=== PATIENT | male | born 1995 | race Caucasian/White ===

== ENCOUNTER 2020-02-22 13:45 | Emergency (ER) | payer OTHER ==
[2020-02-22] MEDS ORDERED: ceFAZolin SODIUM 2 GM in SODIUM CHLORIDE 0.9% 100ML 100 ML IVPB ONE (14:03)
[2020-02-22] MEDS ORDERED: ceFAZolin SODIUM 1 GM VIAL ONE (14:09)
[2020-02-22] MEDS ORDERED: SODIUM CHLORIDE 0.9% 100ML 100 ML IVPB ONE (14:09)
[2020-02-22] MEDS ORDERED: MORPHINE SULFATE INJ 10 MG/ML VIAL ONE (14:10)
[2020-02-22] MEDS ORDERED: ONDANSETRON INJ 4 MG/2 ML VIAL ONE (14:10)
[2020-02-22] MEDS ORDERED: TETANUS,DIPHTHERIA,PERTUSSIS 1 EA SYG IM ONE (14:10)
[2020-02-22] MEDS ORDERED: MORPHINE SULFATE INJ 10 MG/ML VIAL IV ONE (14:15)
[2020-02-22] MEDS ORDERED: ONDANSETRON INJ 4 MG/2 ML VIAL IV ONE (14:15)
--- NOTE | 2020-02-22 14:34 | ED.PDOC ---
History of Present Illness - General Chief Complaint: Upper Extremity Injury Stated Complaint: rope caught middle finger of LH Time Seen by Provider: 02/22/20 14:02 Source: patient, RN notes reviewed, Vital Signs reviewed Exam Limitations: no limitations - History of Present Illness Initial Comments: Patient is a 24-year-old white male who is left-hand dominant who presents with complaints of left middle finger injury. Patient was tying off a horse when his hand was caught between the rope and the bar and horse leaned back constricting and crushing that left middle finger. Patient complains of loss of sensation and color to the left middle finger. Patient states that he is got full range of motion of the finger. Patient denies any other symptoms. Patient's tetanus shot is not up-to-date. Occurred: just prior to arrival Severity: moderate Pain Location: upper extremity - Left middle finger. Method of Injury: direct blow Improving Factors: nothing Worsening Factors: nothing Loss of Consciousness: no loss of consciousness Associated Symptoms (Fall): denies symptoms Allergies/Adverse Reactions: Allergies NO KNOWN ALLERGY Allergy (Verified 02/22/20 13:48) Past Medical History (General) - Patient Medical History Hx Asthma: No Hx Gastroesophageal Reflux: No Surgical History: no surgical history - Vaccination History Hx Tetanus, Diphtheria Vaccination: No - Social History Hx Tobacco Use: No Hx Chewing Tobacco Use: Yes Hx Alcohol Use: Yes - Social on the weekends Hx Substance Use: No - Activities of Daily Living Grooming Ability: Independent Eating (Feeding) Ability: Standby Assistance Toileting Ability: Independent - Female History Patient is a Female of Child Bearing Age (10 -59 yrs old): No Family Medical History - Family History Father Family History: Unknown Physical Exam - Physical Exam General Appearance: Alert, Anxious, Well Developed, Well Groomed, Well Hydrated, Well Nourished Head Injury: no evidence of injury Eye Exam: bilateral normal ENT Exam: hearing grossly normal, no evidence of ENT injury, no dental injury Neck Exam: non-tender, full range of motion, normal alignment, normal inspection Cardiovascular/Respiratory: regular rate, rhythm, no M/R/G, normal peripheral pulses, no JVD, normal breath sounds, no respiratory distress Gastrointestinal/Abdominal: normal bowel sounds, non tender, soft, no organomegaly Back Exam: normal inspection, no CVA tenderness, no vertebral tenderness Extremity Exam: normal range of motion, pelvis stable, other - Left middle finger at the midpoint of the MIP with a circumferential loss of skin with tendon viewable. Distal finger is insensate and is dusky and ashen in appearance. Pencil Doppler is unavailable to check for distal pulses. Neurologic: buttermaker helper II-XII nml as tested, alert, normal mood/affect, oriented x 3, sensory deficit - Distal left third finger. Skin Exam: normal color - Except for left distal third finger., warm/dry - Lora Coma Score Best Eye Response (Lora): (4) open spontaneously Best Verbal Response (Selah): (5) oriented Best Motor Response (Selah): (6) obeys commands Progress - Progress Progress: Differential diagnosis: Left third finger fracture, left third finger degloving injury, left third finger crush injury, left third finger sprain among others. 02/22/20 14:48 Patient was initially evaluated and concern for vascular compromise of the left third middle finger. I initially called [facility] hand and they do not do reimplantations and can only offer amputation. I then contacted [facility] and spoke with , orthopedics, who inform you that they c an only offer amputation and not any opportunity for reimplantation. She recommended I speak to plastic hand surgery at [place]. I did cell and spoke with Dr. Sheikh who accepts the patient for transfer to the ED for further evaluation for possible vascular re-plantation versus amputation. I have informed the patient of same and he voices understanding and agreement with plan of care. Patient has been given Tdap and 2 g of Ancef IV. Labs are pending. X-rays are complete and does not appear to have any fracture. Hand was wrapped with wet saline clot gauze and patient to be transported by ground EMS. Toan Hargrove M.D. #[id number] - Results/Orders Results/Orders: X-ray of left hand shows tissue defect at the MIP of the left third finger. No obvious fractures. Radiology interpretation is pending at this time. Departure - Departure Clinical Impression: Crushing injury of finger of left hand, Need for prophylactic vaccination against diphtheria, tetanus, acellular pertussis, poliovirus, and hepatitis B virus Finger devascularization Qualifiers: Encounter type: initial encounter Qualified Code(s): S65.509A - Unspecified injury of blood vessel of unspecified finger, initial encounter Time of Disposition: 14:52 Disposition: Transfer to Hospital Condition: Good Departure Forms: ED Discharge - Pt. Copy, Patient Portal Self Enrollment Diet: other - Patient to be n.p.o. until evaluated at [facility]. Activity: increase activity as tolerated
[2020-02-22] MEDS ORDERED: HYDROmorphone HCL INJ 2 MG/ML VIAL IV ONE (14:46)
[2020-02-22 15:26] VITALS: BP 159/108; TEMP 98; O2SAT 99
--- NOTE | 2020-02-22 16:06 | RAD ---
EXAM DESCRIPTION: Hand,Left 3 Views CLINICAL HISTORY: 24 years Male crush/partial degloving L middle finger, pain. COMPARISON: None TECHNIQUE: AP, lateral and oblique views of the left hand are obtained. FINDINGS: OSSEOUS: There is no evidence of acute fracture or osteolytic/osteoblastic lesions. There is no evidence of subluxation or dislocation. The joint spaces are preserved. There is no evidence of degenerative osteophytosis or sclerosis. There is no evidence of marginal erosive changes to suggest an inflammatory arthritis. SOFT TISSUE: There is a severe soft tissue laceration circumferentially involving the distal aspect of the middle phalanx of the third digit. No evidence of significant soft tissue calcifications. No radiopaque foreign bodies. IMPRESSION: No acute osseous abnormalities. There is a severe soft tissue laceration circumferentially involving the distal aspect of the middle phalanx of the third digit. Remainder of findings as described above. Electronically signed by: Ela Kramer MD 02/22/2020 4:05 PM CDT
== END 2020-02-22 15:05 | disposition short-term general hospital (02) ==
LOC: ER 13:45
DX: S67.193A Crushing injury of left middle finger, initial encounter (principal); S65.50 Unspecified injury of blood vessel of other and unspecified finger; W23.0XXA Caught, crushed, jammed, or pinched between moving objects, initial encounter; Y92.9 Unspecified place or not applicable
CPT/HCPCS: 36415; 73130; 80048; 85025; 90471; 90715; J0690; J1170; J2270; J2405; J7050